=== PATIENT | male | born 1985 | race Caucasian/White ===

== ENCOUNTER 2024-03-18 13:23 | Emergency (ER) | payer OTHER ==
[~2024-03-18] VITALS: Ht 182.9 cm; Wt 109.1 kg
[2024-03-18 13:34] VITALS: TEMP 98.4
[2024-03-18] MEDS: PERTUSS(ACELL),DIPH,TET/PF 0.5 ML SYRINGE [ADULT] IM. ONE (14:55)
[2024-03-18 16:00] VITALS: BP 129/77; PULSE 79; RESP 16; O2SAT 98
[2024-03-18] MEDS: BACITRACIN 0.9 GM PACKET OINTMENT TP ONE (16:02)
[2024-03-18] MEDS ORDERED: CEPH-558 PO (16:08)
== END 2024-03-18 16:33 | disposition home or self-care (01) ==
LOC: EMS 13:36
DX: S81.001A Unspecified open wound, right knee, initial encounter (principal); W19.XXXA Unspecified fall, initial encounter; Y93.89 Activity, other specified; Y92.89 Other specified places as the place of occurrence of the external cause; Y99.8 Other external cause status
CPT/HCPCS: 29505; 90471; 90715; 99283